=== PATIENT | male | born 1975 | race Caucasian/White ===

== ENCOUNTER 2017-03-12 16:46 | Emergency (ER) | payer BC ==
[2017-03-12 16:51] VITALS: TEMP 97.7
--- NOTE | 2017-03-12 17:50 | EDPHY ---
H & P Time Seen by Provider: 03/12/17 17:45 HPI/ROS: CHIEF COMPLAINT: [place] level drawn HISTORY OF PRESENT ILLNESS: This is a 41-year-old male presenting emergency department reports being sent here to have his lithium levels drawn. Patient states he has been on lithium for a year, last level was checked in January. Patient was concerned that his levels may be high, he started having intermittent headache for a couple days with bilateral ear ringing onset today about 11 . Patient states he did have some alcohol over the 10 of March does not know if this can be a contributing factor to the way that he has been feeling over the past couple days. Denies any dizziness lightheadedness nausea vomiting REVIEW OF SYSTEMS: Constitutional: No fever, no chills. Eyes: No discharge. No blurred vision ENT: No sore throat. Bilateral ear ringing Cardiovascular: No chest pain, no palpitations. Respiratory: No cough, no shortness of breath. Gastrointestinal: No abdominal pain, no vomiting. Genitourinary: No hematuria. Musculoskeletal: No back pain. Skin: No rashes. Neurological: Intermittent headache. Smoking Status: Current every day smoker Physical Exam: General Appearance: Alert, no distress. HEENT: Pupils equal and round no pallor or injection. TMs normal bilaterally. Mucous membranes moist. Respiratory: There are no retractions, lungs are clear to auscultation. Cardiovascular: Regular rate and rhythm. Gastrointestinal: Abdomen is soft and nontender, no masses, bowel sounds normal. Neurological: No focal deficits. Cranial nerves intact. Ambulatory without gait disturbance. Fine and gross motor skills intact Skin: Warm and dry, no rashes. Musculoskeletal: Neck is supple nontender. Extremities: symmetrical, full range of motion. Psychiatric: Patient is oriented X 3, answering questions appropriately Constitutional: Initial Vital Signs Temperature (C) 36.5 C 03/12/17 16:50 Heart Rate 77 03/12/17 16:50 Respiratory Rate 16 03/12/17 16:50 Blood Pressure 135/76 H 03/12/17 16:50 O2 Sat (%) 99 03/12/17 16:50 O2 Delivery Mode Room Air Allergies/Adverse Reactions: Penicillins Allergy (Verified 03/12/17 16:51) Home Medications: Medication Instructions Recorded [place] Carbonate [[place] 900 mg PO 03/12/17 Carbonate Cap 300 mg (*)] Medical Decision Making - Diagnostics Imaging Results: Imaging Impressions Head CT 03/12/17 19:25 Impression: Normal. I telephoned results to Olamide Anders at 2010 hours. ED Course/Re-evaluation: Discussed ED plan of care: [place] level drawn 184: Discussed lithium level which is 0.4 with patient, I asked him if he had missed any of his doses of lithium he stated no but he states over the past week has been drinking an increased amount of water. Discussed checking , BMP and CBC 2009: Spoke with Dr. Koroma CT head negative no acute findings. Also discussed all lab findings with patient 2014: Patient did report that he stops drinking caffeine 4-5 days ago and started increasing his water intake. This could be a contributing factor to his onset headaches. 2029: Not in any distress, 300 mg lithium given this evening. Discussed increasing lithium level but also following up with primary care provider due to his lithium levels are subtherapeutic at this time. Patient agreed with plan , discharge home---> stable, discussed all discharge instructions with patient Differential Diagnosis: Other differential diagnosis considered but not limited to subarachnoid hemorrhage, CVA, and lithium toxicity - Data Points Laboratory Results: Laboratory Results 03/12/17 17:45 03/12/17 17:45 03/12/17 03/12/17 03/12/17 17:45 17:45 17:45 WBC 7.88 10^3/uL 10^3/uL (3.80-9.50) RBC 5.01 10^6/uL 10^6/uL (4.40-6.38) Hgb 15.9 g/dL g/dL (13.7-17.5) Hct 45.9 % % (40.0-51.0) MCV 91.6 fL fL (81.5-99.8) MCH 31.7 pg pg (27.9-34.1) MCHC 34.6 g/dL g/dL (32.4-36.7) RDW 12.7 % % (11.5-15.2) Plt Count 199 10^3/uL 10^3/uL (150-400) MPV 9.8 fL fL (8.7-11.7) Neut % (Auto) 50.9 % % (39.3-74.2) Lymph % (Auto) 38.5 % % (15.0-45.0) [place] % (Auto) 7.5 % % (4.5-13.0) Eos % (Auto) 2.3 % % (0.6-7.6) Baso % (Auto) 0.5 % % (0.3-1.7) Nucleat RBC Rel Count 0.0 % % (0.0-0.2) Absolute Neuts (auto) 4.02 10^3/uL 10^3/uL (1.70-6.50) Absolute Lymphs (auto) 3.03 10^3/uL H 10^3/uL (1.00-3.00) Absolute Monos (auto) 0.59 10^3/uL 10^3/uL (0.30-0.80) Absolute Eos (auto) 0.18 10^3/uL 10^3/uL (0.03-0.40) Absolute Basos (auto) 0.04 10^3/uL 10^3/uL (0.02-0.10) Absolute Nucleated RBC 0.00 10^3/uL 10^3/uL (0-0.01) Immature Gran % 0.3 % % (0.0-1.1) Immature Gran # 0.02 10^3/uL 10^3/uL (0.00-0.10) Sodium 142 mEq/L mEq/L (134-144) Potassium 4.7 mEq/L mEq/L (3.5-5.2) Chloride 106 mEq/L mEq/L (97-110) Carbon Dioxide 26 mEq/l mEq/l (22-31) Anion Gap 10 mEq/L mEq/L (8-16) BUN 12 mg/dL mg/dL (7-23) Creatinine 1.2 mg/dL mg/dL (0.7-1.3) Estimated GFR > 60 Glucose 81 mg/dL mg/dL (70-100) Calcium 9.6 mg/dL mg/dL (8.5-10.4) [place] 0.4 mEq/L L mEq/L (0.6-1.2) Departure - Departure Disposition: Home, Routine, Self-Care Clinical Impression: Abnormal blood level of lithium Condition: Good Instructions: [place] (By mouth), Tension Headache (ED) Additional Instructions: 1. Your lithium level today was 0.4 unchanged from January of [address] dose of 300 mg was given tonight 2. Follow up with your primary care provider tomorrow to increase your dosage you need to be therapeutic which is 0.6-1.0 3. Increase fluid intake, headaches are more likely a component of caffeine withdrawal since she stopped drinking caffeine several days ago. 4. If at any time symptoms worsen, blurred vision, see losing balance return to the emergency department Referrals: Meredith Combs MD [Primary Care Provider] - As per Instructions
[2017-03-12 18:11] LABS: LITHIUM 0.4 mEq/L (0.6-1.2)
[2017-03-12 18:49] LABS: % IMMATURE GRANULYOCYTES 0.3 % (0.0-1.1); ABSOLUTE IMMATURE GRANULOCYTES 0.02 10^3/uL (0.00-0.10); ADD DIFF? NO; ADD MORPH? NO; ADD SCAN? NO; ATYPICAL LYMPHOCYTE FLAG 10 (0-99); FRAGMENT RBC FLAG 0 (0-99); HEMATOCRIT 45.9 % (40.0-51.0); HEMOGLOBIN 15.9 g/dL (13.7-17.5); LEFT SHIFT FLG 0 (0-99); LIPEMIA HEMOLYSIS FLAG 90 (0-99); MEAN CELL HEMOGLOBIN 31.7 pg (27.9-34.1); MEAN CELL HEMOGLOBIN CONCENTR. 34.6 g/dL (32.4-36.7); MEAN CELL VOLUME 91.6 fL (81.5-99.8); MEAN PLATELET VOLUME 9.8 fL (8.7-11.7); PLATELET CLUMPS FLAG 0 (0-99); PLATELET COUNT 199 10^3/uL (150-400); RED BLOOD CELL COUNT 5.01 10^6/uL (4.40-6.38); RED CELL DISTRIBUTION WIDTH 12.7 % (11.5-15.2)
[2017-03-12 19:02] LABS: ANION GAP 10 mEq/L (8-16); CALCIUM 9.6 mg/dL (8.5-10.4); CARBON DIOXIDE 26 mEq/l (22-31); CHLORIDE 106 mEq/L (97-110); CREATININE 1.2 mg/dL (0.7-1.3); GLOMERULAR FILTRATION RATE > 60; GLUCOSE 81 mg/dL (70-100); POTASSIUM 4.7 mEq/L (3.5-5.2); SODIUM 142 mEq/L (134-144)
[2017-03-12] MEDS ORDERED: LITHIUM CARBONATE ER 300 MG TAB PO ONE (20:33)
[2017-03-12] MEDS ORDERED: LITHIUM CARBONATE 300 MG CAP PO ONE (21:45)
[2017-03-12 21:46] VITALS: BP 119/81; PULSE 79; RESP 16; O2SAT 97
== END 2017-03-12 21:46 | disposition home or self-care (01) ==
DX: R78.89 Finding of other specified substances, not normally found in blood (principal)